=== PATIENT | male | born 1945 | race American Indian/Alaskan Native ===

== ENCOUNTER 2022-12-07 08:56 | Day surgery (SDC) | payer MEDICARE, OTHER ==
[~2022-12-07] VITALS: Ht 180.3 cm; Wt 100.9 kg
[~2022-12-07 08:56] MED LIST: COZAAR25 MG PO; FLONASE ALLERG9.9 ML NAS; K-RIGHT SOFTGE1 EACH PO; LIPITOR10 MG PO; MELOXICAM5 MG PO; VITAMIN B12-FO1 EACH PO; ZYRTEC10 MG PO
[2022-12-07] MEDS ORDERED: VITAMIN D350 MC3 PO (09:25)
[2022-12-07] MEDS ORDERED: MACULAR HEALTH1 EACH PO (09:26)
[2022-12-07] MEDS ORDERED: SINGULAIR10 MG PO (09:26)
[2022-12-07 09:37] VITALS: BP 173/71
--- NOTE | 2022-12-07 11:16 | NUR ---
12/07/22 1116 Romana Luis 1112-PATIENT ARRIVED TO PACU ON 3L NC RR EVEN PLACED ON 2L. PATIENT REACTIVE TO VERBAL STIMULI DENIES PAIN OR NAUSEA. IVF INFUSING. ABDOMEN SOFT. PATIENT DOZES BACK TO SLEEP
[2022-12-07 11:40] VITALS: BP 167/71
--- NOTE | 2022-12-08 07:24 | OR ---
[facility] [address], [place] [address] Signed DATE OF OPERATION: 12/07/2022 SURGEON: Lisa Padilla MD PREOPERATIVE DIAGNOSIS: History of colon polyps greater than six years ago ([facility]). POSTOPERATIVE DIAGNOSES: 1. Diverticulosis. 2. Polyps x4. PROCEDURES: Total colonoscopy to cecum with cold morcellation polypectomy x3 and cold snare polypectomy x1. ANESTHESIA: Intravenous sedation fentanyl 100 mcg, Versed 3 mg. INDICATION: This 77-year-old [place] man is a patient of Dr. Marie at [facility] and underwent colonoscopy greater than five years ago in the [facility] where he was found to have polyps. He has family history of colon cancer in his uncle. He has no symptoms currently. He is admitted to undergo colonoscopy. He understands the risk of bleeding, infection, and perforation. FINDINGS: The prep was good. Complete colonoscopy was undertaken of the cecum without question. He had diverticula scattered throughout the colon. Had four polyps in total, two in the transverse colon, one in the proximal descending colon. Another in the sigmoid. All were excised completely. PROCEDURE IN DETAIL: The patient was brought to the endoscopy suite and placed in lateral decubitus position given intravenous sedation to the point of slurred speech and nystagmus. Digital rectal examination was normal. An Olympus video colonoscope was passed in the rectum and manipulated throughout the colon noting diverticula throughout the colon. The scope was ultimately advanced to the cecum which was intubated fully. Irrigation was undertaken. The ileocecal valve was prominent, but not pathologic. Scope was then removed. Examination undertaken. In the Electronically Signed By: LISA PADILLA MD 12/08/22 0724 PATIENT NAME: DANIEL MOYA OPERATIVE REPORT DATE OF : 43 REPORT #: [id number] PHYSICIAN: LISA PADILLA MD PCP: CHARLES MARIE MD REPORT IS CONFIDENTIAL AND NOT TO BE RELEASED WITHOUT AUTHORIZATION [facility] [address], [place] [address] Signed mid transverse colon, there were two small polyps, one excised with cold morcellation technique. Another with cold snare technique. Further withdrawal of scope to the proximal descending colon showed a small polyp, which was excised with cold morcellation technique. Additional withdrawal showed a few diverticula of the sigmoid and left colon and in the sigmoid and another small polyp excised with cold morcellation technique. Retroflexed view of the rectum was normal. The scope was removed. The patient was taken to the recovery room in good condition. CONCLUDING DIAGNOSIS: Polyps x4 and diverticulosis. PLAN: Recommend repeat colonoscopy in three years, sooner if clinically indicated. He will return to the ongoing care of Dr. Marie at [facility]. MD NADIYA Johnson/KO /[id number] cc: Charles Marie MD Copies: CHARLES MARIE MD ~ Electronically Signed By: LISA PADILLA MD 12/08/22 0724 PATIENT NAME: DANIEL MOYA OPERATIVE REPORT DATE OF : 43 REPORT #: [id number] PHYSICIAN: LISA PADILLA MD PCP: CHARLES MARIE MD REPORT IS CONFIDENTIAL AND NOT TO BE RELEASED WITHOUT AUTHORIZATION
== END 2022-12-07 11:50 | disposition home or self-care (01) ==
LOC: DS 08:56 → OPS 08:56 → DS 13:00 → OPS 13:00
PROVIDERS: ATTEND Surgery
PROC: 0DBL8ZZ Excision of Transverse Colon, Via Natural or Artificial Opening Endoscopic (ICD-10-PCS; 2022-12-07)
PROC: 0DBN8ZZ Excision of Sigmoid Colon, Via Natural or Artificial Opening Endoscopic (ICD-10-PCS; 2022-12-07)
PROC: 0DBM8ZZ Excision of Descending Colon, Via Natural or Artificial Opening Endoscopic (ICD-10-PCS; principal; 2022-12-07 10:30)
DX: Z12.11 Encounter for screening for malignant neoplasm of colon (principal); Z86.010 Personal history of colon polyps; Z80.0 Family history of malignant neoplasm of digestive organs; I10 Essential (primary) hypertension; H26.9 Unspecified cataract; E78.5 Hyperlipidemia, unspecified; K57.30 Diverticulosis of large intestine without perforation or abscess without bleeding; D12.4 Benign neoplasm of descending colon; D12.5 Benign neoplasm of sigmoid colon; D12.3 Benign neoplasm of transverse colon
CPT/HCPCS: 99153; G0500; J2250; J3010; J7121

== ENCOUNTER 2024-02-27 11:38 | Day surgery (SDC) | payer MEDICARE, OTHER ==
[~2024-02-27] VITALS: Ht 180.3 cm; Wt 101.4 kg
[~2024-02-27 11:38] MED LIST changes: -COZAAR25 MG PO; -FLONASE ALLERG9.9 ML NAS; +IBLOOD GLUCOSE TEST STRIP 1 EA TEST VI PRN; -K-RIGHT SOFTGE1 EACH PO; +LACTATED RINGER'S 1,000 ML IV SCH; +LIDOCAINE HCL 1% 5 ML SDV INJ ONE; -LIPITOR10 MG PO; -MELOXICAM5 MG PO; +MIDAZOLAM HCL 5 MG/5 ML VIAL IV PRN; +MIDAZOLAM HCL 5 MG/5 ML VIAL ONE; -VITAMIN B12-FO1 EACH PO; -ZYRTEC10 MG PO; +fentaNYL citrate 100 MCG/2 ML VIAL IV PRN; +fentaNYL citrate 100 MCG/2 ML VIAL ONE
--- NOTE | 2024-02-27 13:51 | NUR ---
02/27/24 1351 Jillian Velasquez 1341: PT ARRIVES TO PACU FOR RECOVERY. AWAKE ON ARRIVAL, ANSWERS QUESTIONS APPROPRIATELY. VSS, RESP EVEN AND UNLABORED ON 3L VIA NC. LEFT LATERAL POSITION. DENIES NAUSEA AND PAIN. PASSING FLATULENCE INTERMITTENTLY 1343: VSS, REMAINS ON 3L VIA NC. DENIES PAIN AND NAUSEA 1350: MD VALERIE AT THE BEDSIDE. HOB ELEVATED AND OXYGEN TURNED OFF. PT MAINTAINS O2 SAT >97% ON RA
[2024-02-27 14:13] VITALS: BP 137/67
--- NOTE | 2024-02-29 11:05 | OR ---
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 POSTOPERATIVE DIAGNOSES: 1. Small polyp of splenic flexure. 2. Two polyps of sigmoid. 3. Diverticula of sigmoid and left colon. PROCEDURE: Total colonoscopy to cecum with cold morcellation polypectomy x4. ANESTHESIA: Intravenous sedation; fentanyl 100 mcg and Versed 5 mg. INDICATION: This 78-year-old man is a patient of Dr. Marie. He underwent colonoscopy by in in 2022 where he was found to have sigmoid and transverse colonic serrated adenomas. He is admitted at this time to undergo colonoscopy for surveillance. He has no current symptoms of bleeding, diarrhea, or constipation. FINDINGS: The prep was good. Complete colonoscopy was undertaken to the cecum without question. He had small polypoid mucosal lesions of the splenic flexure, possibly hyperplastic polyps and two distinct adenomatous appearing polyps of the sigmoid. There were few diverticula of the sigmoid as well. DESCRIPTION OF PROCEDURE: The patient was brought to the endoscopy suite and placed in the lateral decubitus position, given intravenous sedation to the point of slurred speech and nystagmus. Digital rectal examination was normal. An Olympus video colonoscope was passed in the rectum and manipulated throughout the colon ultimately intubating the cecum. The ileocecal valve and appendiceal orifice were noted. Photographs were taken. The scope was then withdrawn and careful inspection upon withdrawal of scope showed no sign of abnormality until the splenic flexure, there appeared to be small mucosal polyps, possibly hyperplastic. These were excised with Electronically Signed By: LISA PADILLA MD 02/29/24 1105 PATIENT NAME: DANIEL MOYA OPERATIVE REPORT DATE OF : 43 REPORT #: [id number] PHYSICIAN: LISA PADILLA MD PCP: CHARLES MARIE MD REPORT IS CONFIDENTIAL AND NOT TO BE RELEASED WITHOUT AUTHORIZATION [facility] [address], [place] [address] Signed cold morcellation technique and sent in the same container. Further withdrawal showed distinct polyps of the sigmoid, 2 of which were excised, both labeled separately. This was by cold morcellation technique as well. Further withdrawal showed no other abnormality. Retroflexed view of the rectum was normal. Scope was removed and the patient was taken to the recovery room in good condition. CONCLUDING DIAGNOSIS: Polyps as noted. PLAN: Recommend repeat colonoscopy in three years, sooner if clinically indicated depending on histology of the polyps excised today. MD NADIYA Johnson/KO /[id number] cc: Charles Marie MD Copies: CHARLES MARIE MD ~ Electronically Signed By: LISA PADILLA MD 02/29/24 1105 PATIENT NAME: CASTROSOLOMONDANIEL OPERATIVE REPORT DATE OF : 43 REPORT #: [id number] PHYSICIAN: LISA PADILLA MD PCP: CHARLES MARIE MD REPORT IS CONFIDENTIAL AND NOT TO BE RELEASED WITHOUT AUTHORIZATION
--- NOTE | 2024-02-29 17:17 | PATH ---
[facility] [address] [facility] [place], [place] [address] Signed SPECIMEN(S): A SPLENIC FLEXURE COLON POLYP SPECIMEN(S): B SIGMOID POLYP SPECIMEN(S): C SIGMOID POLYP SPECIMEN SOURCE: A. SPLENIC FLEXURE COLON POLYP B. SIGMOID POLYP C. SIGMOID POLYP CLINICAL HISTORY: 1) multiple polyps at splenic flexure. History of serrated adenoma 2022. Family history polyps colon. Postop: Diverticula and polyps. FINAL PATHOLOGIC DIAGNOSIS: A. Splenic flexure colon polyp: - Hyperplastic polyp (two fragments). B. Sigmoid polyp: - Hyperplastic polyp (three fragments). C. Sigmoid polyp: - Hyperplastic polyp (multiple fragments). JVR:matt MICROSCOPIC EXAMINATION: Histologic sections of all submitted blocks are examined by light microscopy. These findings, together with the gross examination, support the pathologic diagnosis. GROSS DESCRIPTION: A. The specimen, labeled and designated "Quaempts, R, splenic flexure colon polyp," is received in formalin and consists of four lindsey soft tissue fragments, ranging from 0.3-0.5 cm. Entirely submitted in (A1). B. The specimen, labeled and designated "Quaempts, R, sigmoid polyp," is received in formalin and consists of three lindsey soft tissue fragments, ranging from 0.2-0.4 cm. Entirely submitted in (B1). C. The specimen, labeled and designated "Quaempts, R, sigmoid polyp," is received in formalin and consists of six lindsey soft tissue fragments, ranging from 0.2-0.5 cm. Entirely submitted in (C1). HS (under the direct supervision of a pathologist) The Gross Description was prepared using a voice recognition system. The report was reviewed for accuracy; however, sound-alike word errors, addition and/or PATIENT NAME: DANIEL MOYA PATHOLOGY DATE OF : 43 REPORT #: [id number] PHYSICIAN: [facility] PATHOLOG[facility] PCP: CHARLES CORTEZ MD REPORT IS CONFIDENTIAL AND NOT TO BE RELEASED WITHOUT AUTHORIZATION [facility] [address] [place], [place] [address] Signed deletions may occur. If there is any question about this report, please contact Client Services. PERFORMING LABORATORY: Technical component was performed by [facility], [address] [place] [id number] (CLIA# [id number]). Professional interpretation was performed by [facility] - [facility], [address] [place] [id number] (CLIA#: [id number]). Diagnostician: Jorge Smith MD Pathologist Electronically Signed 02/29/2024 Copies: ~ PATIENT NAME: DANIEL MOYA PATHOLOGY DATE OF : 43 REPORT #: [id number] PHYSICIAN: [facility] PCP: CHARLES CORTEZ MD REPORT IS CONFIDENTIAL AND NOT TO BE RELEASED WITHOUT AUTHORIZATION
== END 2024-02-27 14:24 | disposition home or self-care (01) ==
LOC: DS 11:38
PROVIDERS: ATTEND Surgery
PROC: 0DBN8ZZ Excision of Sigmoid Colon, Via Natural or Artificial Opening Endoscopic (ICD-10-PCS; principal; 2024-02-27)
PROC: 0DBL8ZZ Excision of Transverse Colon, Via Natural or Artificial Opening Endoscopic (ICD-10-PCS; 2024-02-27)
DX: K63.5 Polyp of colon (principal); K57.30 Diverticulosis of large intestine without perforation or abscess without bleeding; Z86.010 Personal history of colon polyps; Z83.719 Family history of colon polyps, unspecified; Z80.0 Family history of malignant neoplasm of digestive organs; I10 Essential (primary) hypertension; E78.5 Hyperlipidemia, unspecified; Z88.0 Allergy status to penicillin; Z79.899 Other long term (current) drug therapy
CPT/HCPCS: 88305; 99153; G0500; J2250; J3010; J7121